=== PATIENT | male | born 1970 | race Caucasian/White ===

== ENCOUNTER 2021-12-27 14:11 | Observation (INO) | payer OTHER ==
[~2021-12-27] VITALS: Ht 170.2 cm; Wt 104.3 kg
[~2021-12-27 14:11] MED LIST: AMLO5TAB8 PO; ATOR10TA PO; CARI350T PO; CARV25TA PO; CLOP75TA PO; DIAZ10TA7 PO; FURO40TA9 PO; HYDR4TAB4 PO; ISOS30TE44 PO; LISI-486 PO; OXYC1TAB PO; PANT40EC PO; RANO500T3 PO; SPIR25TA21 PO; WARF4TAB84 PO; WARF6TAB41 PO
[2021-12-27 14:43] VITALS: BP 134/80
--- NOTE | 2021-12-27 14:46 | NUR ---
PT AMB TO BED 12.
--- NOTE | 2021-12-27 14:50 | NUR ---
WALKED IN C/O CP ONSET 4 DAYS AGO ACCOMPANIED BY SOB UPON EXERTION ONSET YESTERDAY. HX OR, CHF, ACTIVE SMOKER. AAOX4, AMBULATORY, VITALS STABLE. ON ROOM AIR. ON ROUTE SALESMAN AND DRIVER, BLOOD DRAWN, IV ESTABLISHED ON L HAND 20 G. URINE COLLECTED
--- NOTE | 2021-12-27 15:31 | NUR ---
XR AT BEDSIDE
[2021-12-27 15:55] LABS: BASOPHILS # (AUTO) 0.1 K/uL (0.00-0.22); EOSINOPHILS # (AUTO) 0.4 K/uL (0-0.4); HEMATOCRIT 45.1 % (36-52); LYMPHOCYTES # (AUTO) 1.7 K/uL (2.0-11.5); LYMPHOCYTES % (AUTO) 23.2 % (20.5-51.1); MEAN CORPUSCULAR HEMOGLOBIN 27 pg (27-31); MEAN CORPUSCULAR HGB CONC 33 g/dL (33-37); MEAN CORPUSCULAR VOLUME 80.7 fL (80-94); MONOCYTES # (AUTO) 0.7 K/uL (0.8-1.0); MONOCYTES % (AUTO) 9.9 % (1.7-9.3); NEUTROPHILS # (AUTO) 4.3 K/uL (1.8-7.7); NEUTROPHILS % (AUTO) 60.9 % (42.2-75.2); PLATELET COUNT (AUTO) 244 K/uL (140-450); WHITE BLOOD COUNT (AUTO) 7.1 K/uL (4.8-10.8)
[2021-12-27 16:17] LABS: PROTHROMBIN TIME 10.1 secs (10.8-13.4)
[2021-12-27] MEDS ORDERED: FUROSEMIDE 40 MG/4 ML VIAL IVP ONE (16:25)
[2021-12-27] MEDS ORDERED: fentaNYL citrate 0.05 MG/ML VIAL IVP ONE (16:25)
[2021-12-27 16:32] LABS: ALBUMIN 3.6 g/dL (3.4-5.0); ANION GAP 12.9 (8-16); CARBON DIOXIDE 27.2 mmol/L (21-32); CREATININE 1.2 mg/dL (0.6-1.3); POTASSIUM 4.1 mmol/L (3.5-5.1); TOTAL BILIRUBIN 0.5 mg/dL (0.0-1.0)
[2021-12-27] MEDS ORDERED: HYDROmorphone PFS 2 MG/ML SYR IVP ONE (17:15)
[2021-12-27] MEDS ORDERED: ASPIRIN 325 MG TAB PO ONE (17:40)
[2021-12-27] MEDS ORDERED: ASPI-1822 PO (18:20)
[2021-12-27] MEDS ORDERED: FAMO-90 PO (18:20)
[2021-12-27] MEDS ORDERED: SACU1TAB5 PO (18:20)
[2021-12-27] MEDS ORDERED: EMPA25TA PO (18:20)
[2021-12-27 18:28] VITALS: BP 124/85
[2021-12-27] MEDS ORDERED: KCL 20 MEQ/WATER INJ PREMIX 200 ML IV PRN (18:40)
[2021-12-27] MEDS ORDERED: MAGNESIUM OXIDE 400 MG TAB PO PRN (18:40)
[2021-12-27] MEDS ORDERED: ACETAMINOPHEN 325 MG TAB PO PRN (18:40)
[2021-12-27] MEDS ORDERED: ONDANSETRON 4 MG/2 ML VIAL IVP PRN (18:40)
[2021-12-27] MEDS ORDERED: POTASSIUM CHLORIDE 10 MEQ TABER PO PRN (18:40)
[2021-12-27] MEDS ORDERED: LORazepam 1 MG TAB PO PRN (18:40)
[2021-12-27] MEDS ORDERED: MAG SULF 2000 MG/WATER PREMIX 50 ML IV PRN (18:40)
[2021-12-27] MEDS ORDERED: diazePAM 5 MG TAB PO SCH (18:50)
[2021-12-27] MEDS ORDERED: oxyCODONE/APAP 5/325 MG 1 TAB TAB PO PRN (18:50)
--- NOTE | 2021-12-27 19:17 | NUR ---
Patient does not wish to proceed with medical care recommended by DR DE LUNA. Patient given information related to possible complications, up to and including , which could occur as a result of leaving hospital at this time. Patient verbalizes understanding of risks involved leaving against medical advice. Patient has signed AMA form. PT EXPLAINED RISK OF LEAVING INCLUDING
[2021-12-27] MEDS ORDERED: lisinopriL 10 MG TAB PO SCH (21:00)
[2021-12-27] MEDS ORDERED: RANOLAZINE 500 MG TER PO SCH (21:00)
[2021-12-27] MEDS ORDERED: carvediloL 12.5 MG TAB PO SCH (21:00)
[2021-12-27] MEDS ORDERED: carisoprodoL 350 MG TAB PO SCH (21:00)
[2021-12-28] MEDS ORDERED: ENOXAPARIN 40 MG/0.4 ML SYR SUBQ SCH (09:00)
[2021-12-28] MEDS ORDERED: ISOSORBIDE MONONITRATE 30 MG TABER PO SCH (09:00)
[2021-12-28] MEDS ORDERED: PANTOPRAZOLE 40 MG TABEC PO SCH (09:00)
[2021-12-28] MEDS ORDERED: NON-FORMULARY ITEM (Warfarin Sodium* (Coumadin*) 6 MG) PO SCH (09:00)
[2021-12-28] MEDS ORDERED: CLOPIDOGREL 75 MG TAB PO SCH (09:00)
[2021-12-28] MEDS ORDERED: ASPIRIN 81 MG TAB.CHEW PO SCH (09:00)
[2021-12-28] MEDS ORDERED: FUROSEMIDE 40 MG TAB PO SCH (09:00)
[2021-12-28] MEDS ORDERED: ATORVASTATIN 20 MG TAB PO SCH (09:00)
[2021-12-29] MEDS ORDERED: SPIRONOLACTONE 25 MG TAB PO SCH (09:00)
[2021-12-29] MEDS ORDERED: WARFARIN SODIUM 8 MG PO SCH (09:00)
== END 2021-12-27 19:17 | disposition left against medical advice (07) ==
LOC: MED 14:11 → MTU 18:47
PROVIDERS: ADMIT Internal Medicine; ATTEND Internal Medicine
DX: R07.89 Other chest pain (principal); Z20.822 Contact with and (suspected) exposure to COVID-19; R06.02 Shortness of breath; I25.10 Atherosclerotic heart disease of native coronary artery without angina pectoris; G89.29 Other chronic pain; M54.9 Dorsalgia, unspecified; I10 Essential (primary) hypertension; E11.9 Type 2 diabetes mellitus without complications; J45.909 Unspecified asthma, uncomplicated; Z79.82 Long term (current) use of aspirin; Z79.899 Other long term (current) drug therapy
CPT/HCPCS: 36415; 71045; 80053; 83880; 84484; 85025; 85610; 85730; 87426; 93005; 96374; 96375; 99285; G0378; J1170; J1940; J3010; Q0092